=== PATIENT | female | born 1935 | race Caucasian/White ===

== ENCOUNTER → 2019-06-18 15:20 | Outpatient (CLI) | payer MEDICARE, SELFPAY ==
--- NOTE | 2019-06-18 | DI.ECHO.S_ITS ---
[facility]---------+ [facility] +---------+ : : [address] : [address] : : : : [id number] : : : : Phone: [phone]+ Echocardiogram Report + + :Name: JARROD CAVAZOS Study Date: 06/18/2019 Height: 62 in : :[facility] Weight: 185 lb : : Gender: Female BSA: 1.8 m2 : :: 1935 Age: 83 yrs BP: 142/78 mmHg: :Reason For Study: Dyspnea : :Ordering Physician: Dr. Christiano Summers Performed By: LRF : :Referring: Irena SUMMERS : + + Interpretation Summary 1) Mild to moderately increased left ventricular thickness with normal size and low normal systolic function (EF 50-55%). 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 Anterior wall has subtle hypokinesis. 3) Normal right ventricular size and function. 4) There is moderate mitral regurgitation. 5) No prior Echo available for comparison. Procedure: A two-dimensional transthoracic echocardiogram with color flow and Doppler was performed. The study quality was technically adequate. There is no prior echocardiogram noted for this patient. The patient was in normal sinus rhythm during the exam. Left Ventricle: The left ventricle is normal in size. Left ventricular wall thickness is mild-moderately increased. The ejection fraction is estimated to be 50-55%. Left ventricular systolic function is low normal. Anterolateral and inferolateral wall are severely hypokinetic. Anterior wall has subtle hypokinesis. Right Ventricle: The right ventricle is normal in size and function. Atria: Both atria are mildly dilated. There is no Doppler evidence for an interatrial shunt. Mitral Valve: There is mild mitral annular calcification. The mitral valve leaflets appear normal. There is no evidence of stenosis, fluttering, or prolapse. There is moderate mitral regurgitation. Aortic Valve: The aortic valve is trileaflet. The aortic valve opens well. There is no aortic valve stenosis. There is mild aortic regurgitation. Tricuspid Valve: The tricuspid valve leaflets are thin and pliable. There is mild tricuspid regurgitation. The right ventricular systolic pressure is estimated to be at least 37 mmHg based on an estimated right atrial pressure of 3 mm Hg. Pulmonic Valve: The pulmonic valve is not well seen, but is grossly normal. There is trace pulmonic regurgitation. Great Vessels: The aortic root is normal size. The ascending aorta is at the upper limits of normal in size. The IVC is of normal diameter and collapses greater than 50% with a sniff. This suggests a low right atrial pressure of 3 mm Hg. Pericardium/ Pleura There is no pericardial effusion. MMode/2D Measurements & Calculations LVIDd: 5.6 cm LVOT diam: 2.0 cm LVIDs: 3.9 cm Ao root diam: 2.9 cm FS: 29.8 % asc Aorta Diam: 3.3 cm EPSS: 1.1 cm IVSd: 1.3 cm LVPWd: 1.3 cm LV [place]. diameter/BSA (cm/m^2): 3.0 LV sys. diameter/BSA (cm/m^2): 2.1 LA A2 area: 23.6 cm2 RA long axis: 4.7 cm LA A4 area: 20.8 cm2 RA area: 15.4 cm2 LA length (vol): 5.6 cm RA vol: 42.9 ml LA vol: 74.4 ml RA : 23.2 ml/m2 LA vol index: 40.2 ml/m2 IVC diam: 1.5 cm RVD1 (basal): 3.5 cm RVD2 (mid): 2.8 cm TAPSE: 2.5 cm Doppler Measurements & Calculations LVOT Max Maynor: 84.0 cm/sec MV E max maynor: 97.9 cm/sec LV V1 max P.8 mmHg MV A max maynor: 92.6 cm/sec LV V1 VTI: 21.5 cm MV E/A: 1.1 AI P1/2t: 759.7 msec Med Peak E' Maynor: 3.6 cm/sec AI dec slope: 157.4 cm/sec2 E/E' med: 27.4 Lat Peak E' Maynor: 5.0 cm/sec E/E' lat: 19.6 E/e' average: 23.5 MV dec time: 0.22 sec MV P1/2t: 65.9 msec TR max maynor: 291.0 cm/sec MV P1/2t max maynor: 98.2 cm/sec TR max P.6 mmHg MVA(P1/2t): 3.3 cm2 PA V2 max: 74.5 cm/sec PA V2 mean: 45.1 cm/sec PA mean P.95 mmHg PA Accel Time: 0.12 sec SV(LVOT): 66.9 ml Reading Physician:06:00 PM
== END ==
PROVIDERS: Referring Provider Family Medicine Geriatric Medicine; Visit Provider Family Medicine Geriatric Medicine
DX: I08.3 Combined rheumatic disorders of mitral, aortic and tricuspid valves (principal); R06.00 Dyspnea, unspecified
CPT/HCPCS: 93306